=== PATIENT | male | born 1965 | race Caucasian/White ===

== ENCOUNTER → 2019-03-21 | Day surgery (SDC) | payer OTHER ==
[~2019-03-21] VITALS: Ht 172.7 cm; Wt 83.0 kg
[~2019-03-21] MED LIST: ASPIRIN325 PO; SIMVASTATIN40 MG PO
[2019-03-21 12:14] VITALS: BP 124/64
--- NOTE | 2019-03-25 06:49 | O ---
[facility] [place] [address] OPERATIVE REPORT Name: FRANCISCO CHARLTON JR Room #: [facility].#: [id number] Admission: 03/21/19 Attend Phys: Francisco Griffiths MD Discharge: Date of : 63 Report #: [id number] THIS REPORT FOR: //name// CC: ROSA Darling Physician staff Francisco Griffiths DATE OF SERVICE: 03/21/2019 [employer] OFFICER: None. PREOPERATIVE DIAGNOSIS: Unilateral right-sided lower lid entropion. POSTOPERATIVE DIAGNOSIS: Unilateral right-sided lower lid entropion. OPERATION PERFORMED: Unilateral right-sided lower lid entropion repair. ANESTHESIA: Local with IV sedation. COMPLICATIONS: None. INDICATIONS FOR PROCEDURE: This patient has unilateral lower lid entropion with chronic irritation and discharge. The current procedure is being undertaken in order to improve the patient's level of comfort and visual function. Informed consent was obtained to include but not limited to the loss of vision, bleeding, infection, scarring, failure to improve the problem and need for further surgery. DESCRIPTION OF OPERATION: The patient was taken to the operating room, where 2% Xylocaine with epinephrine mixed with equal parts of 0.75% Marcaine with Wydase was administered transcutaneously and transconjunctivally to the lower lid and lateral canthal area. The patient was then prepped and draped in the usual sterile fashion. A Sherlyn clamp was used to clamp the lateral canthus, following which a sharp canthotomy and cantholysis were performed. Hemostasis was achieved with a monopolar cautery, as it was throughout the case. A tarsal strip was prepared laterally, removing the lash-bearing portion of the redundant lid margin and the redundant tarsal plate. A transconjunctival dissection was then undertaken just inferior to the lower border of the tarsal plate. The lower lid retractors were disinserted from the inferior border of the tarsal plate. The lower lid retractors were then advanced and reattached to the anterior surface of the tarsal plate with mattress 5-0 chromic sutures passed transconjunctivally and secured in the infraciliary margin. The tarsal strip [address] [address] OPERATIVE REPORT Name: FRANCISCO CHARLTON JR Room #: [facility].#: [id number] Admission: 03/21/19 Attend Phys: Francisco Griffiths MD Discharge: Date of : 63 Report #: [id number] was then secured laterally with 2 interrupted 5-0 Prolene sutures. The subcutaneous structures and the skin were then closed with multiple interrupted 6-0 plain gut sutures so the lateral canthal angle was sharply reformed. The wound was then cleaned and dressed with ophthalmic antibiotic ointment. The patient was then transported to the recovery area having tolerated the procedure well with no anesthetic or operative complications being noted. <ELECTRONICALLY SIGNED> By: Francisco Griffiths MD 03/25/19 [id number] Francisco Griffiths MD /gertrude
== END | disposition home or self-care (01) ==
LOC: OR 11:06
DX: H02.002 Unspecified entropion of right lower eyelid (principal); H57.89 Other specified disorders of eye and adnexa; E78.00 Pure hypercholesterolemia, unspecified; F17.210 Nicotine dependence, cigarettes, uncomplicated; Z86.73 Personal history of transient ischemic attack (TIA), and cerebral infarction without residual deficits; Z98.890 Other specified postprocedural states; Z79.82 Long term (current) use of aspirin; Z79.899 Other long term (current) drug therapy
CPT/HCPCS: 50010; 50101; 50386; 50398; 51636; 56527; 56531; 62110; 62850; 70005